=== PATIENT | female | born 1990 | race Caucasian/White ===

== ENCOUNTER 2018-07-30 16:26 | Emergency (ER) | payer OTHER ==
[~2018-07-30] VITALS: Ht 162.6 cm; Wt 95.5 kg
[2018-07-30 16:34] VITALS: Ht 162.6 cm; Wt 95.5 kg
[2018-07-30 21:15] VITALS: BP 120/70; PULSE 86; RESP 20
--- NOTE | 2018-07-31 02:21 | ERD ---
ER Documentation Chief Complaint Chief Complaint Sent by clinic for "no detectable heartbeat" from ultrasound, 9 wks pregnan HPI 27-year-old female presents from OB clinic due to undetectable heartbeat. Patient is currently 9 weeks . She denies any vaginal bleeding or pelvic pain. She denies fevers or chills. She denies abdominal pain, nausea, vomiting. ROS All systems reviewed and are negative except as per history of present illness. Allergies Allergies: Coded Allergies: No Known Allergy (Unverified , 07/30/18) PMhx/Soc Medical and Surgical Hx: pt denies Medical Hx, pt denies Surgical Hx Hx Alcohol Use: No Hx Substance Use: No Hx Tobacco Use: No Smoking Status: Never smoker Physical Exam Vitals Vital Signs Date Temp Pulse Resp B/P (MAP) Pulse Ox O2 O2 Flow FiO2 Time Delivery Rate 07/30/18 99.1 86 20 120/70 100 Room Air 21:15 (87) 07/30/18 98.4 74 18 123/73 100 16:34 (90) Physical Exam Const: No acute distress Resp: Clear to auscultation bilaterally Cardio: Regular rate and rhythm, no murmurs Abd: Soft, non tender, non distended. Normal bowel sounds, no McBurney's point tenderness, no Charles sign, no rebound or guarding noted. Skin: No petechiae or rashes Back: No midline or flank tenderness Ext: No cyanosis, or edema Neur: Awake and alert Psych: Normal Mood and Affect Result Diagram: 07/30/181915 Results 24 hrs Laboratory Tests Test 07/30/18 19:16 07/30/18 19:17 White Blood Count 12.1 10^3/ul Red Blood Count 4.38 10^6/ul Hemoglobin 13.1 g/dl Hematocrit 39.2 % Mean Corpuscular Volume 89.5 fl Mean Corpuscular Hemoglobin 29.9 pg Mean Corpuscular Hemoglobin Concent 33.4 g/dl Red Cell Distribution Width 11.6 % Platelet Count 360 10^3/UL Mean Platelet Volume 9.7 fl Immature Granulocytes % 0.400 % Neutrophils % 72.6 % Lymphocytes % 19.7 % Monocytes % 6.1 % Eosinophils % 0.8 % Basophils % 0.4 % Nucleated Red Blood Cells % 0.0 /100WBC Immature Granulocytes # 0.050 10^3/ul Neutrophils # 8.7 10^3/ul Lymphocytes # 2.4 10^3/ul Monocytes # 0.7 10^3/ul Eosinophils # 0.1 10^3/ul Basophils # 0.1 10^3/ul Nucleated Red Blood Cells # 0.0 10^3/ul Beta HCG, Quantitative 332171.0 mIU/ml Urine Color YELLOW Urine Clarity CLOUDY Urine pH 5.0 Urine Specific [place] 1.023 Urine Ketones TRACE mg/dL Urine Nitrite NEGATIVE mg/dL Urine Bilirubin NEGATIVE mg/dL Urine Urobilinogen NEGATIVE mg/dL Urine Leukocyte Esterase NEGATIVE Lyndsey/ul Urine Microscopic RBC 5 /HPF Urine Microscopic WBC 1 /HPF Urine Squamous Epithelial Cells MANY /HPF Urine Bacteria FEW /HPF Urine Mucus FEW /HPF Urine Hemoglobin 1+ mg/dL Urine Glucose NEGATIVE mg/dL Urine Total Protein NEGATIVE mg/dl Procedures/MDM Medical Decision Making: Differential diagnosis includes but not limited to demise, ectopic pre gnancy, molar . Patient appeared well on physical examination CBC showed a mildly elevated WBC of 12, no anemia noted. Beta-hCG level was 303945 UA was negative for infection There is no sign of infection, elevated WBC likely due to a stress reaction. Obstetric ultrasound a gestational sac is implanted within the uterus the size of the average gestational sac at 8 weeks 5 days plus or minus 1 week. No yolk sac is identified and there appears to be a pole corresponding to a ges tational age of 7 weeks 6 days plus or minus 4 days. No cardiac activity is identified., with demise. 2.1 cm slightly complex right ovarian cyst is evident. Vascular flow is demonstrated in the right ovary on Doppler. The left ovary is not identified. No adnexal mass or free fluid is evident. Discussed with patient the findings consistent with a demise. Patient advised follow-up with TEST ENGINEER for further care. Patient advised to follow up with PCP in 1-2 days. Patient advised to return to ED for new or worsening symptoms. Patient stable on discharge from the ED. Disclaimer: Inadvertent spelling and grammatical errors are likely due to EHR/dictation software use and do not reflect on the overall quality of patient care. Also, please note that the electronic time recorded on this note does not necessarily reflect the actual time of the patient encounter. Departure Diagnosis: Primary Impression: demise Condition: Fair Patient Instructions: Miscarriage Referrals: COMMUNITY CLINICS YOU HAVE RECEIVED A MEDICAL SCREENING EXAM AND THE RESULTS INDICATE THAT YOU DO NOT HAVE A CONDITION THAT REQUIRES URGENT TREATMENT IN THE EMERGENCY DEPARTMENT. FURTHER EVALUATION AND TREATMENT OF YOUR CONDITION CAN WAIT UNTIL YOU ARE SEEN IN YOUR DOCTORS OFFICE WITHIN THE NEXT 1-2 DAYS. IT IS YOUR RESPONSIBILITY TO MAKE AN APPOINTMENT FOR FOLOW-UP CARE. IF YOU HAVE A PRIMARY DOCTOR --you should call your primary doctor and schedule an appointment IF YOU DO NOT HAVE A PRIMARY DOCTOR YOU CAN CALL OUR PHYSICIAN REFERRAL HOTLINE AT IF YOU CAN NOT AFFORD TO SEE A PHYSICIAN YOU CAN CHOSE FROM THE FOLLOWING [facility] [address] [facility]. [facility] [address] [facility]. [facility] [address] [facility] [facility] [address] [facility]. [facility] [address] [facility]. [facility]. [address] Additional Instructions: Llame al doctor MAANA y donna alyse GALDINO PARA DENTRO DE 1-2 VALERIO.Dgale a la secretaria que nosotros le instruimos hacer esta galdino.Avise o llame si crisostomo condicin se empeora antes de la galdino. Regresa aqui si peor o no mejor. MAG MOCK DO Jul 31, 2018 02:21
== END 2018-07-30 21:15 | disposition home or self-care (01) ==
LOC: FTE 16:26
DX: O02.1 Missed abortion (principal)
CPT/HCPCS: 36415; 76801; 81001; 84702; 85025

== ENCOUNTER 2018-08-05 07:47 | Day surgery (SDC) | payer OTHER ==
[~2018-08-05] VITALS: Wt 64.9 kg
[2018-08-05] VITALS (13 sets, daily range): BP systolic 94–113; BP diastolic 45–81; PULSE 66–92; RESP 14–19
--- NOTE | 2018-08-05 08:09 | ERD ---
ER Documentation Chief Complaint Chief Complaint 9 weeks with spotting HPI 27-year-old female, , with EGA 9 weeks approximately by LMP 06/01/18. Presents to the emergency department, according to the patient, referred by Dr. Mahan for a D&C. The patient denies abdominal pain, no vaginal bleeding, no vaginal discharge, no fever or chills. ROS All systems reviewed and are negative except as per history of present illness. Allergies Allergies: Coded Allergies: No Known Allergy (Unverified , 08/05/18) PMhx/Soc Medical and Surgical Hx: pt denies Medical Hx, pt denies Surgical Hx Hx Alcohol Use: No Hx Substance Use: No Hx Tobacco Use: No Smoking Status: Never smoker FmHx Family History: No diabetes, No coronary disease Physical Exam Vitals Vital Signs Date Temp Pulse Resp B/P (MAP) Pulse Ox O2 O2 Flow FiO2 Time Delivery Rate 08/05/18 98.1 84 18 112/56 99 07:50 (74) Physical Exam Const: No acute distress Head: Atraumatic Eyes: Normal Conjunctiva ENT: Normal External Ears, Nose and Mouth. Neck: Full range of motion. No meningismus. Resp: Clear to auscultation bilaterally Cardio: Regular rate and rhythm, no murmurs Abd: Soft, non tender, non distended. Normal bowel sounds Skin: No petechiae or rashes Back: No midline or flank tenderness Ext: No cyanosis, or edema Neur: Awake and alert Psych: Normal Mood and Affect Results 24 hrs Current Medications Medications Dose Sig/Syl Start Time Status Last (Trade) Ordered Route PRN Stop Time Admin Dose Reason Admin Sodium 500 ml @ Q1H STAT 08/05/18 Chloride 500 mls/hr IV 09:01 08/05/18 10:00 DIAGNOSTIC IMAGING REPORT Patient: BRIANNA CARRENO : 1990 Age: 27 Sex: F MR #: [id number] DOS: 07/30/18 190 Ordering MD: MAG DAVID DO Location: [facility] Room/Bed: PROCEDURE: US Obstetrical 1st Trimester CLINICAL INDICATION: Vaginal bleeding TECHNIQUE: Multiple real-time images were acquired of the patient's maternal abdomen utilizing a curved array transducer. COMPARISON: None FINDINGS: There is a well implanted gestational sac within the fundus of the uterus with a mean sac diameter of 3.49 cm which corresponds to a gestational sac age of 8 weeks 5 days plus or minus 1 week. No yolk sac is identified. There is a single pole with a crown-rump length of 1.51 cm which corresponds to a gestational age of 7 weeks 6 days plus or minus 4 days. No cardiac activity is evident. The right ovary measures 4.6 x 3.2 x 3.1 cm and contains a 2.1 cm slightly complex cyst. Vascular flow is demonstrated in the right ovary on Doppler. The left ovary is not identified. No adnexal mass or free fluid is identified IMPRESSION: 1. A gestational sac is implanted within the uterus the size of the average gestational sac at 8 weeks 5 days plus or minus 1 week. No yolk sac is identified and there appears to be a pole corresponding to a gestational age of 7 weeks 6 days plus or minus 4 days. No cardiac activity is identified., with demise. 2. A 2.1 cm slightly complex right ovarian cyst is evident. Vascular flow is demonstrated in the right ovary on Doppler. The left ovary is not identified. 3. No adnexal mass or free fluid is evident. Findings of demise were telephoned by Alan Alonso MD to Dr. David on 07/30/2018 and 1946 hours. Physician Holger Date Time Electronically viewed and signed by Physician Holger on 07/30/2018 19:51 Procedures/MDM Vital signs stable, Physical exam unremarkable. Differential diagnosis include but not limited to: UTI, threatening , incomplete versus complete , ectopic , molar . Physical examination and clinical presentation most likely consistent with missed at 9 weeks, the patient was referred by Dr. Mahan for D&C. During the ED course the patient remained hemodynamically stable and asym ptomatic. Results and clinical impression discussed with patient who agrees with management. The patient is stable for D&C. last PO 6:00 oatmeal. The patient was instructed regarding the outcomes and the potential complications like severe bleeding. Disclaimer: Inadvertent spelling and grammatical errors are likely due to EHR/dictation software use and do not reflect on the overall quality of patient care. Also, please note that the electronic time recorded on this note does not necessarily reflect the actual time of the patient encounter. Departure Diagnosis: Primary Impression: Missed with demise before 20 completed weeks of gestation Condition: PAUL Hobson MD Aug 05, 2018 08:09
[2018-08-05] MEDS ORDERED: SOD CHLORIDE 0.9% 500 ML IV STA (09:01)
--- NOTE | 2018-08-05 09:46 | HP ---
Date/Time of Note Date/Time of Note DATE: 08/05/18 TIME: 09:45 OB - History Hx of Present Free Text/Dictation This note opened by mistake. Please see Cement Breaker note for detail Past Family/Social History * Past Medical, Surgical, Family and Obstetric Histories reviewed from chart. OB Admission Exam Vital Signs Vital Signs Vital Signs Date Temp Pulse Resp B/P (MAP) Pulse Ox O2 O2 Flow FiO2 Time Delivery Rate 08/05/18 98.1 84 18 112/56 99 07:50 (74) Last 72 hours Lab Results REAGAN RODRIGUEZ Aug 05, 2018 09:45
--- NOTE | 2018-08-05 10:31 | PREAC ---
Date/Time of Note Date/Time of Note DATE: 08/05/18 TIME: 10:29 Anesthesia Eval and Record Evaluation Time Pre-Procedure Interview DATE: 08/05/18 TIME: 10:29 Age 27 Sex female NPO: 8 hrs Preoperative diagnosis missed ab Planned procedure d and c Past Medical History Past Medical History: Includes (previous ectopic ) Surgery & Anesthesia Issues No known issue Meds Anticoagulation: No Beta Bre within 24 hr: No Reason Beta Bre not given: Pt. not on B-Bre Meds reviewed: Yes Allergies Coded Allergies: No Known Allergy (Unverified , 08/05/18) Allergies Reviewed: Yes Labs/Studies Labs Reviewed: Reviewed by anesthesiologist Result Diagram: 08/05/18924 Laboratory Tests 08/05/18 09:25 Blood Bank Test 08/05/18 09:25 Blood Type O POSITIVE test: Positive Pre-procedure Exam Last vitals Vital Signs Date Temp Pulse Resp B/P (MAP) Pulse Ox O2 O2 Flow FiO2 Time Delivery Rate 08/05/18 98.7 64 18 109/65 98 Room Air 09:57 (80) Airway: Adequate mouth opening, Adequate thyromental dist Mallampati: Mallampati I Teeth: Normal Lung: Normal Heart: Normal ASA Physical Status ASA physical status: 2 Emergency: None Planned Anesthetic General/MAC: LMA Planned Pain Management Parenteral pain med Pre-operative Attestations Prior to commencing anesthesia and surgery, the patient was re-evaluated, there was verification of: *The patient's identity *The results of appropriate recent lab work and preoperative vital signs *The above evaluation not changing prior to induction *Anesthetic plan, risk benefits, alternative and complications discussed with patient/family; questions answered; patient/family understands, accepts and wishes to proceed. ANITA MONZON Aug 05, 2018 10:30
[2018-08-05] MEDS ORDERED: FENTAnyl 50 MCG/ML VIAL ONE (10:36)
[2018-08-05] MEDS ORDERED: PROPOFOL 100 ML ONE (10:36)
[2018-08-05] MEDS ORDERED: ONDANSETRON 4 MG INJ ONE (11:00)
[2018-08-05] MEDS ORDERED: DEXAMETHASONE 4 MG/ML 5 ML INJ ONE (11:00)
--- NOTE | 2018-08-05 11:02 | HP ---
Date/Time of Note Date/Time of Note DATE: 08/05/18 TIME: 10:54 Assessment/Plan VTE Prophylaxis SCD applied (from Nsg): Yes SCD contraindicated: low risk/ambulating Pharmacological prophylaxis: NA/contraindicated Pharm contraindication: low risk/ambulating Lines/Catheters IV Catheter Type (from Nrsg): Saline Lock Assessment/Plan Assessment/Plan 27 years old with missed and vaginal spotting. -CBC, blood type and screen -Beta-hCG -Labs, ultrasound, management options including expectant management, medical treatment with Cytotec and dilation with suction curettaged discussed in detail with patient and her partner. Both expressed understanding. All of their ques tions answered. She would like to have the dilation with suction curettaged. Risk including but not limited to bleeding infection, infection, blood transfusion, blood transfusion related infection, uterine perforation, injury to other organ (bowel, bladder, ureter, nerves and vessels) if uterine perforation occurs, scar formation, need for further surgery incomplete removal of productive conception discussed in detail with patient and her partner. Both expressed understanding she signed informed consent. Result Diagram: 08/05/18 0925 Results 24hrs Laboratory Tests Test 08/05/18 09:24 08/05/18 09:25 Beta HCG, Quantitative 46515.0 White Blood Count 8.2 # Red Blood Count 4.18 L Hemoglobin 12.3 Hematocrit 36.8 L Mean Corpuscular Volume 88.0 Mean Corpuscular Hemoglobin 29.4 Mean Corpuscular Hemoglobin Concent 33.4 Red Cell Distribution Width 11.9 Platelet Count 304 Mean Platelet Volume 10.0 Immature Granulocytes % 0.400 Neutrophils % 65.0 Lymphocytes % 25.0 Monocytes % 7.7 Eosinophils % 1.2 Basophils % 0.7 Nucleated Red Blood Cells % 0.0 Immature Granulocytes # 0.030 Neutrophils # 5.3 Lymphocytes # 2.0 Monocytes # 0.6 Eosinophils # 0.1 Basophils # 0.1 Nucleated Red Blood Cells # 0.0 HPI/ROS Admit Date/Time Admit Date/Time 08/05/2008 Hx of Present Illness 27 years old (second was ectopic )complaining of vaginal spotting and abdominal pain. She states good movement. She denies nausea, vomiting, shortness of breath, chest pain, headache, visual changes. She was seen at the emergency department of [facility] previously. Transvaginal ultrasound performed as noted below: There is a well implanted gestational sac within the fundus of the uterus with a mean sac diameter of 3.49 cm which corresponds to a gestational sac age of 8 weeks 5 days plus or minus 1 week. No yolk sac is identified. There is a single pole with a crown-rump length of 1.51 cm which corresponds to a gestational age of 7 weeks 6 days plus or minus 4 days. No cardiac act ivity is evident. The right ovary measures 4.6 x 3.2 x 3.1 cm and contains a 2.1 cm slightly complex cyst. Vascular flow is demonstrated in the right ovary on Doppler. The left ovary is not identified. No adnexal mass or free fluid is identified IMPRESSION: 1. A gestational sac is implanted within the uterus the size of the average gestational sac at 8 weeks 5 days plus or minus 1 week. No yolk sac is identified and there appears to be a pole corresponding to a gestational age of 7 weeks 6 days plus or minus 4 days. No cardiac activity is identified., with demise. 2. A 2.1 cm slightly complex right ovarian cyst is evident. Vascular flow is demonstrated in the right ovary on Doppler. The left ovary is not identified. 3. No adnexal mass or free fluid is evident. ROS Constitutional: no complaints Cardiovascular: no complaints Gastrointestinal: other (Abdominal pain) Genitourinary: other (Vaginal spotting and abdominal pain) PMH/Family/Social Past Medical History Medical History: no pertinent history Coded Allergies: No Known Allergy (Unverified , 08/05/18) Past Surgical History Past Surgical Hx: no surgical history Family History Significant Family History: no pertinent family hx Social History Alcohol Use: none Smoking Status: Never smoker Drug Use: none Exam/Review of Systems Vital Signs Vitals Vital Signs Date Temp Pulse Resp B/P (MAP) Pulse Ox O2 O2 Flow FiO2 Time Delivery Rate 08/05/18 98.7 64 18 109/65 98 Room Air 09:57 (80) Exam Constitutional: alert, oriented Psych: no complaints, nl mood/affect Neck: supple, non-tender Respiratory: clear to auscultation, normal air movement Cardiovascular: regular rate and rhythm Gastrointestinal: soft, nl liver, spleen, non-tender Genitourinary - Male: other (External genitalia within normal limits. Vagina with minimal bleeding. Cervix is closed. Uterus 10 weeks, mobile nontender. Adnexa no palpable mass bilateral) Musculoskeletal: nl extremities to inspection REAGAN RODRIGUEZ Aug 05, 2018 11:02
[2018-08-05] MEDS ORDERED: CEFAZOLIN 1 GM INJ ONE (11:08)
[2018-08-05] MEDS ORDERED: KETOROLAC 30 MG INJ ONE (11:23)
[2018-08-05] MEDS ORDERED: MISOPROSTOL 200 MCG TAB PR ONE ×2 (11:30)
--- NOTE | 2018-08-05 11:58 | PAC ---
Date/Time of Note Date/Time of Note DATE: 08/05/18 TIME: 11:58 Post-Anesthesia Notes Post-Anesthesia Note Last documented vital signs Vital Signs Date Temp Pulse Resp B/P (MAP) Pulse Ox O2 O2 Flow FiO2 Time Delivery Rate 08/05/18 98.0 87 98/55 99 11:54 08/05/18 64 18 109/65 98 Room Air 09:57 (80) Activity: WNL Respiratory function: WNL Cardiovascular function: WNL Mental status: Baseline Pain reasonably controlled: Yes Hydration appropriate: Yes Nausea/Vomiting absent: Yes ANITA MONZON Aug 05, 2018 11:58
[2018-08-05] MEDS ORDERED: HYDROmorphONE 1 MG/5 ML IV SYRINGE IV ONE (11:59)
[2018-08-05] MEDS ORDERED: hydrALAzine 20 MG INJ IV PRN (12:00)
[2018-08-05] MEDS ORDERED: ONDANSETRON 4 MG INJ IV PRN (12:00)
[2018-08-05] MEDS ORDERED: OXYCODONE/ACETAMINOPHEN (5/325) TAB PO PRN ×2 (12:00)
[2018-08-05] MEDS ORDERED: LABETALOL HCL 20MG INJ IV PRN (12:00)
[2018-08-05] MEDS ORDERED: FENTAnyl 50 MCG/ML VIAL IV PRN ×3 (12:00)
[2018-08-05] MEDS ORDERED: METOCLOPRAMIDE 10 MG INJ IV PRN (12:00)
[2018-08-05] MEDS ORDERED: MEPERIDINE 25 MG INJ IV PRN (12:00)
[2018-08-05] MEDS ORDERED: KETOROLAC 30 MG INJ IV PRN (12:00)
[2018-08-05] MEDS ORDERED: DIPHENHYDRAMINE 50 MG INJ IV PRN (12:00)
[2018-08-05] MEDS ORDERED: HYDROmorphONE 1 MG/5 ML IV SYRINGE IV PRN ×3 (12:00)
[2018-08-05] MEDS ORDERED: ALBUTEROL 0.083% (NEB) 2.5 MG/3 ML AMP HHN PRN (12:00)
[2018-08-05] MEDS ORDERED: HYDROCODONE/APAP (5/325) TAB PO PRN (12:30)
[2018-08-05] MEDS ORDERED: IBUPROFEN 800 MG TAB GTB SCH (14:00)
--- NOTE | 2018-08-06 00:42 | OPR ---
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 Vagina with minimal old blood. Cervix: very small and nulliparous with no lesion. Uterus: 12 weeks, mobile, anteverted. Adnexa: No palpable mass, bilateral. INDICATION AND HISTORY: 27-year-old with missed . Treatment options including expectant management, medical treatment with Cytotec and dilation with suction curettage were discussed in detail with the patient and her partner. She would like to have dilation and suction curettage. Risks including but not limited to bleeding, infection, uterine perforation, injury to other organs, bowel, bladder, ureter, vessel and nerves if uterine perforation occurs, blood transfusion, blood transfusion transfusion-related infection, scar formation, risk of anesthesia and other indicated surgery were discussed in detail with the patient and her partner. Both expressed understanding. All of the questions were answered. She signed the informed consent. PROCEDURE IN DETAIL: The patient was identified and the procedure verified. She was given general anesthesia without difficulty and placed in a modified dorsal lithotomy. The patient was examined under general anesthesia as noted above. The patient was then prepped and draped in the normal sterile fashion. The bladder was drained by insertion of straight catheter. Then, a weighted speculum was used to visualize the cervix, which was grasped on anterior lip with a single tooth tenaculum. The cervix was very small, cervix was dilated to # 7, as noted above the cervix was very small and not able to dilated more. Then a # 6 flexible suction curettage was introduced into the uterine cavity. Suction curettage was performed in a 360-degree fashion until no further tissue was obtained. Then a sharp curette was gently introduced into the uterine cavity until a gritty texture was felt in all 4 quadrants. Again, the suction curettage was introduced to remove the remaining clot and debris, no further tissue was obtained. The specimen was sent to pathology. Tenaculum was removed. There was no bleeding from the tenaculum site. The speculum was removed. The patient tolerated the procedure well. She was extubated in the operating room and transferred to the recovery room in stable condition. REAGAN RODRIGUEZ Aug 06, 2018 00:42
== END 2018-08-05 17:54 | disposition home or self-care (01) ==
LOC: FTE 07:47 → SUR 10:07 → SDS 10:07 → SUR 17:54
PROVIDERS: ATTEND Obstetrics & Gynecology
DX: O02.1 Missed abortion (principal)
CPT/HCPCS: 36415; 59820; 84702; 85025; 86900; 86901; 88305; 96374; 96375; 99285; J0690; J1100; J1170; J1885; J2405; J3010; J7040